=== PATIENT | female | born 2000 | race African-American/Black ===

== ENCOUNTER → 2021-01-09 11:55 | Outpatient (BNVA) | payer BC, SELFPAY | PROVIDERS: PCP Pediatrics; Visit Provider Advanced Practice Midwife ==

== ENCOUNTER → 2021-01-14 13:13 | Outpatient (BNVA) | payer BC, SELFPAY | PROVIDERS: PCP Pediatrics; Visit Provider Advanced Practice Midwife | DX: Z30.011 Encounter for initial prescription of contraceptive pills (principal); Z30.432 Encounter for removal of intrauterine contraceptive device | CPT/HCPCS: 11982 ==

== ENCOUNTER → 2021-04-15 13:25 | Outpatient (BNVA) | payer BC, SELFPAY | PROVIDERS: PCP Pediatrics; Visit Provider Advanced Practice Midwife ==

== ENCOUNTER 2022-10-15 12:52 | Outpatient (REF) | payer BC, SELFPAY | END 2022-10-15 12:53 | disposition home or self-care (01) | LOC: HO.LNP 12:52 | PROVIDERS: PCP Pediatrics; Visit Provider Advanced Practice Midwife | DX: Z01.419 Encounter for gynecological examination (general) (routine) without abnormal findings (principal) | CPT/HCPCS: 88142 ==

== ENCOUNTER 2022-10-15 13:50 | Outpatient (REF) | payer BC, SELFPAY ==
[2022-10-15 15:18] LABS: Syphilis Screen Nonreactive (Nonreactive)
[2022-10-15 17:13] LABS: CT PCR NOT DETECTED (Not Detect.); NG PCR NOT DETECTED (Not Detect.)
[2022-10-17 09:44] LABS: HBc Num1 0.09 S/CO (0.00-0.79); HIV AB/AG Nonreactive (Nonreactive); HIV Num 1 0.06 S/CO (0.00-0.99); Hepatitis B Core Antibody Nonreactive (Nonreactive); ~HepC Num1 0.08 S/CO (0.00-0.79); ~Hepatitis C Antibody Nonreactive (Nonreactive)
== END 2022-10-15 13:51 | disposition home or self-care (01) ==
LOC: HO.LAB 13:50
PROVIDERS: Visit Provider Advanced Practice Midwife
DX: Z11.4 Encounter for screening for human immunodeficiency virus [HIV] (principal); Z11.3 Encounter for screening for infections with a predominantly sexual mode of transmission; Z20.2 Contact with and (suspected) exposure to infections with a predominantly sexual mode of transmission
CPT/HCPCS: 0353U; 86704; 86780; 86803; 87389

== ENCOUNTER 2023-10-22 13:11 | Outpatient (REF) | payer BC, SELFPAY ==
[2023-10-23 03:52] LABS: CT PCR NOT DETECTED (Not Detect.); NG PCR NOT DETECTED (Not Detect.)
[2023-10-23 15:17] LABS: BV Int Neg Control Negative (Negative); BV Int Pos Control Positive (Positive)
== END 2023-10-22 13:12 | disposition home or self-care (01) ==
LOC: HO.LNP 13:11
PROVIDERS: Visit Provider Advanced Practice Midwife
DX: Z00.00 Encounter for general adult medical examination without abnormal findings (principal); Z20.2 Contact with and (suspected) exposure to infections with a predominantly sexual mode of transmission
CPT/HCPCS: 0353U; 87480; 87510; 87660

== ENCOUNTER 2023-10-22 13:11 | Outpatient (AMB) | payer BC, SELFPAY ==
--- NOTE | 2023-10-22 13:13 | MHC.OFFVIS ---
Intake Vital Signs 10/22/23 13:16 Height 5 ft 6 in Weight 194 lb BMI 31.3 BP 110/70 Intake Visit Reasons: Annual Inspector Plug Seam: Inspector Plug Seam Present (Dahlia) Allergies No Known Allergies Allergy (Verified 10/22/23 13:16) Is last menstrual period known: Yes Last menstrual period: 09/24/23 HPI HPI Comments History of Present Illness Details She is a premenopausal woman presenting for annual examination. Doing well with no concerns. She tries to eat healthy and stays active with exercise. Regular monthly menses. Currently is sexually active. She denies vaginal itching and irritation. STI screening offered; she accepts. Denies family history of breast, ovarian or colon cancer. Last pap smear 2022, negative. PFSH Surgical History No pertinent past surgical history Family History Mother No problems noted. 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 Sexual orientation: Straight/Heterosexual Gender identity: Female Female Reproductive History Menstrual Age of Menarche: 13 Date of last menstrual period: 09/24/23 control method: condoms Total pregnancies: 0 Date of last pap smear: 10/15/22 (neg) Review of Systems Const All systems reviewed & are unremarkable except as noted in HPI and below Reports as per HPI Eyes Reports no additional complaints ENT Reports no additional complaints Card Reports no additional complaints Resp Reports no additional complaints GI Reports as per HPI and Reports no additional complaints Reports as per HPI Musc Reports no additional complaints Skin/Breast Reports as per HPI Neuro Reports no additional complaints Psych Reports no additional complaints Endo Reports no additional complaints Esdras/Lymph Reports no additional complaints Aller/Immun Reports no additional complaints Physical Exam Vital Signs: Last Vital Signs BP 110/70 10/22/23 13:16 BMI result Body Mass Index 31.3 Const General: cooperative, healthy appearing, no acute distress, well developed and alert Orientation/consciousness: patient oriented x3 HEENT Other: Excessive facial hair growth Head: Yes normal to inspection Eyes General: appearance normal, both eyes and all related structures Neck Neck: Yes normal visual inspection Thyroid: Thyroid normal Chest Chest palpation & inspection: normal inspection of the chest and other (no puckering, dimpling, peau de orange, retraction, discharge, masses) Breast/axilla inspection: normal inspection of the breasts Breast/axilla palpation: normal palpation of the breasts Resp Effort & Inspection: normal respiratory effort GI Inspection: Yes normal to inspection Palpation (GI): Soft to palpation Rectal Exam - Female: deferred General: Yes bladder normal to palpation External Female Exam: normal external appearance and normal appearance of the urethra Speculum Exam - Vagina: normal appearance of the vagina, normal palpation and normal vaginal discharge Speculum Exam - Cervix: normal appearance of the cervix and normal palpation Bimanual exam- vagina & uterus: normal bimanual exam, normal palpation, uterine size normal, bladder normal to palpation, normal palpation and non-tender Bimanual Exam- Adnexa, other: no masses Skin General skin exam: no rashes or lesions noted Rashes: no rashes Neuro General: patient oriented x3 Cognition (Neuro): normal cognition Extrem General: Yes normal to inspection Psych Attitude: cooperative Thought process: Normal thought process present Assessment & Plan Assessment & Plan (1) Encounter for well woman exam with routine gynecological exam: Code(s): Z01.419 - Encounter for gynecological examination (general) (routine) without abnormal findings Plan Discussed: Current recommendations for pap smears per ASCCP guidelines. Breast awareness and periodic breast exams. Maintain a healthy lifestyle including a well balanced diet and routine exercise. Patient reports familiar history of excessive hair growth for her female relatives, she thought this was normal within her family unit. Occasionally has acne. Use condoms for STI and prevention. All of her questions and concerns were addressed to the best of my ability. RTO in one year for annual berry planter examination. This note is constructed using voice recognition software. While every effort has been made to ensure accuracy, early head start teacher errors may have been included. Orders: Orders Bacterial Vaginosis Panel Today Z00.00 - Encounter for general adult medical examination without abnormal findings Testosterone, Free/Total Today L68.0 - Hirsutism CT NG by PCR Today Z00.00 - Encounter for general adult medical examination without abnormal findings 17 Hydroxyprogesterone Today L68.0 - Hirsutism DHEA Sulfate Today L68.0 - Hirsutism Coding Level of Care Code Est Pt Prev Care 18-39y(77525) Diagnoses Encounter for well woman exam with routine gynecological exam Z01.419
[2023-10-22 13:16] VITALS: BP 110/70; BMI 31.3
== END 2023-10-22 14:31 | disposition home or self-care (01) ==
PROVIDERS: PCP Pediatrics; Visit Provider Advanced Practice Midwife
DX: Z01.419 Encounter for gynecological examination (general) (routine) without abnormal findings (principal)
CPT/HCPCS: 99395

== ENCOUNTER 2023-10-22 13:45 | Outpatient (REF) | payer BC, SELFPAY ==
[2023-10-23 08:30] LABS: DHEA Sulfate 265 mcg/dL (14-349)
[2023-10-26 17:04] LABS: Testosterone, Free 5.5 pg/mL (0.1-6.4); Testosterone, Total 43 ng/dL (2-45)
== END 2023-10-22 13:46 | disposition home or self-care (01) ==
LOC: HO.LAB 13:45
PROVIDERS: Visit Provider Advanced Practice Midwife
DX: L68.0 Hirsutism (principal)
CPT/HCPCS: 36415; 82627; 83498; 84402; 84403

== ENCOUNTER 2023-11-06 13:51 | Outpatient (AMB) | payer BC, SELFPAY ==
--- NOTE | 2023-11-06 13:52 | MHC.OFFVIS ---
Intake Vital Signs 11/06/23 13:55 Height 5 ft 6 in Weight 191 lb 12.835 oz BMI 31.0 BP 122/80 Intake Visit Reasons: Lab work follow up Allergies No Known Allergies Allergy (Verified 10/22/23 13:16) HPI HPI Comments History of Present Illness Details Patient is here today for lab work follow-up to rule out PCOS and had a positive home test. Her labs were normal. She reports being happy about the and accepting though it was unplanned. LMP 09/24/2023 now approximately 6 weeks 1 day . She denies any pelvic pain or bleeding. She reports eating well and hydrating. Admits to using marijuana on occasion. [facility] Surgical History No pertinent past surgical history Family History Mother No problems noted. 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 Start vitamins. Discussed healthy diet, eat small frequent meals, if any concerns or difficulties with nausea or vomiting to call the office for evaluation. Advised not to use any marijuana during her , patient feels that is doable. Follow-up pending ultrasound results. Advised to call if there is any vaginal bleeding or pelvic pain for immediate evaluation. All of her questions and concerns were addressed to the best of my ability and shared decision making. She is agreeable to the plan of care. This note is constructed using voice recognition software. While every effort has been made to ensure accuracy, folding rules printing machine operator errors may have been included. Orders: Orders US OB follow up 11/12/23 N92.6 - Irregular menstruation, unspecified, Z34.90 - Encounter for supervision of normal , unspecified, unspecified trimester Medications: New PNV,calcium [id number] acid 27 mg iron- 1 mg ( Vitamins Plus Low Iron) 1 tab PO DAILY 90 tabs 4RF Coding Level of Care Code Est Pt Level 3 (05732) Diagnoses Encounter to discuss test results Z71.2 Early stage of Z34.90 Missed menses N92.6
[2023-11-06 13:55] VITALS: BP 122/80; BMI 31.0
== END 2023-11-06 14:13 | disposition home or self-care (01) ==
PROVIDERS: PCP Pediatrics; Visit Provider Advanced Practice Midwife
DX: Z71.2 Person consulting for explanation of examination or test findings (principal); Z34.90 Encounter for supervision of normal pregnancy, unspecified, unspecified trimester; N92.6 Irregular menstruation, unspecified
CPT/HCPCS: 99213

== ENCOUNTER → 2023-11-06 13:51 | Outpatient (BNVA) | payer BC, SELFPAY | PROVIDERS: PCP Pediatrics; Visit Provider Advanced Practice Midwife ==

== ENCOUNTER 2023-11-12 15:24 | Outpatient (REF) | payer BC, SELFPAY ==
--- NOTE | ~2023-11-12 | US_ITS ---
EXAMINATION: US OBSTETRICAL ULTRASOUND CLINICAL INFORMATION: Irregular menstruation. COMPARISON: None available. LMP: 09/24/2023. Gestational age by maternal dates is 7 weeks. Estimated date of delivery by maternal dates is 06/30/2024. TECHNIQUE: Ultrasound of the maternal pelvis is performed using transabdominal and transvaginal transducers. Transvaginal imaging is performed due to inadequate visualization transabdominally. M-mode Doppler is also performed. FINDINGS: There is a single intrauterine gestational sac with visible yolk sac, embryo/fetus, and cardiac activity. There is no significant subchorionic hemorrhage or hematoma. HR: 128 beats per minute. CRL (crown rump length): 0.7 cm (6 weeks and 5 days +/- 4 days). CHRIS (estimated date of delivery): 07/02/2024 +/- 4 days. MATERNAL ADNEXA: The right maternal ovary measures 2.8 x 1.7 x 2.3 cm. The left maternal ovary measures 2.5 x 1.8 x 2.3 cm. There is a 1.6 cm corpus luteal cyst in the left ovary. There is no significant maternal adnexal mass. No maternal pelvic ascites. US/US OB pelvic and transvaginal IMPRESSION: 1. Single intrauterine gestation with ultrasound gestational age of 6 weeks and 5 days +/- 4 days. 2. Estimated date of delivery is 07/02/2024 +/- 4 days. 3. No maternal adnexal mass or pelvic ascites.
== END 2023-11-12 15:25 | disposition home or self-care (01) ==
LOC: HO.US 15:24
PROVIDERS: PCP Pediatrics; Visit Provider Advanced Practice Midwife
DX: Z34.91 Encounter for supervision of normal pregnancy, unspecified, first trimester (principal); Z3A.01 Less than 8 weeks gestation of pregnancy
CPT/HCPCS: 76801; 76817

== ENCOUNTER → 2023-11-30 14:20 | Outpatient (BNVA) | payer BC, SELFPAY | PROVIDERS: PCP Pediatrics; Visit Provider Advanced Practice Midwife | DX: R11.10 Vomiting, unspecified (principal) | CPT/HCPCS: 99211 ==

== ENCOUNTER 2023-12-02 13:54 | Outpatient (AMB) | payer BC, SELFPAY ==
[2023-12-02 14:13] VITALS: BMI 31.1
--- NOTE | 2023-12-02 14:13 | A.OFFVISPN_ITS ---
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: No Allergies No Known Allergies Allergy (Verified 10/22/23 13:16) Medication List - Last Reconciled 12/02/23 by Shanti Lucio doxylamine succinate (Unisom (doxylamine)) 25 mg PO BEDTIME 30 days vit,rick [id number]-[id number] 28 mg iron- 1 mg (Trinate) 1 tab PO BEDTIME 90 days pyridoxine (vitamin B6) (Vitamin B-6) 25 mg PO tid PRN 30 days Is last menstrual period known: Yes Last menstrual period: 09/24/23 Post menopausal: No Patient : Yes Do you need a note to return to daycare/school/sports/work: No PFSH Medical History (Updated 12/02/23 @ 15:14 by Shanti Lucio) Supervision of normal first in first trimester Surgical History No pertinent past surgical history Family History (Updated 12/02/23 @ 15:04 by Shanti Lucio) Mother HTN (hypertension) Father HTN (hypertension) Paternal Grandfather HTN (hypertension) Sister Type 1 diabetes mellitus Brother Autism Social History (Updated 12/02/23 @ 14:25 by Shanti Lucio) Household Members: Family Both parents involved: Yes Caregiver staying overnight: No Housing: House Are you a primary career development associate to a significant other at home: No Do you presently have visiting nurse or other home services: No 75 years or older and lives alone: No Alcohol intake: never Patient Tobacco Use Status: Never used Tobacco Substance Use Type: Marijuana Special anson needs: No Agree to transfusion: Yes service: No Current occupational status: employed 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 Current occupational exposures/hazards: No Sexual orientation: Straight/Heterosexual Gender identity: Female Female Reproductive History Menstrual Age of Menarche: 13 Duration of menses: 3-5 days Date of last menstrual period: 09/24/23 control method: none Total pregnancies: 1 Full term: 0 Premature: 0 Number of Living Children: 0 Ab induced: 0 Ab spontaneous: 0 Ectopics: 0 Multiple births: 0 History of abnormal pap smear: No History of STI: No History History 1 Elective abortions 0 Para 0 Spontaneous abortions 0 Hx # Term Pregnancies 0 Ectopic pregnancies 0 Hx # Pregnancies 0 Multiple births 0 Education First Trimester Education Checklist Plans/Education - by Trimester Counseled: Yes HIV and other routine tests: discussed Infectious disease exposure: chicken pox immunity discussed, hepatitis risk discussed and tuberculosis exposure discussed Influenza vaccine: discussed Nutrition and weight gain counseling: special diet: discussed Sexual activity: discussed Exercise: discussed Tobacco use: No Alcohol use: No Substance use: No Environmental/home/work hazards: discussed Domestic violence: discussed Travel: discussed Seatbelt use: discussed Toxoplasmosis precautions (cats/raw meat): discussed Risk factors identified by history: discussed danger signs: No education packet: Child education class information, symptoms, vitamins and iron, diet and weight gain, fish and mercury intake, listeriosis prevention, exercise and activity, sexual activity, x-ray exposure, medication use, toxoplasmosis precautions, sauna/hot tub use and dental care Mental health: discussed Anticipated course of care: discussed Indications for ultrasound: discussed Health center information: personnel described, visit schedule reviewed, coverage 24 hours a day and signs of miscarriage reviewed Questionnaire History History : 1 Visit CHRIS Calculator Estimated Delivery Date Method Current WG Current Estimate 07/02/24 Ultrasound #1 9w 4d Other Estimates 06/30/24 LMP (Uncertain) 9w 6d Expected Delivery Route/Plan Specific Issues/Plans FH Type I Diabetes--added early glucose to labs FH of Autism [place] background OB Visit Log Initial Weight: 193 lb Date -?-?-?-?-?-?-?-?-?-?-?-?- EGA Weight Gest Week Fundal Ht Present FHR move Efface % Edema BP PrePreg We Weight GTT -?-?-?-?-?-?-?-?-?-?-?-?- Glucose LV Protein Blood Type 12/02/23 -?-?-?-?-?-?-?-?-?-?-?-?- 9w 4d 193 lb (+0 oz) 193 lb -?-?-?-?-?-?-?-?-?-?-?-?- Notes Visit Date: 12/02/23 Last Updated by: 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 She is a pleasant 23 yo with LMP 09/24/23 and CHRIS 07/03/24 and GA today 9w5d. US on 11/12/23 at 6w5d with CHRIS 07/02/24 and GA 9w6d. Sil and her fiance, Miguel, are very excited about their first . Sil feels safe in her relationship and supported without any h/o DV. Pt has had difficulty with hyperemesis but feels much better now. She started using [employer] 3 days ago and has not had any nausea/vomiting since. She is eating and drinking anything she wants. Her weight has not decreased and urine dip is negative for ketones. She was given the folder, we discussed danger signs and she is aware of 27/04 MD coverage and was advised how to reach MD after hours, weekends and holidays. Pt has a brother with Autism, a sister with Type 1 DM and [place] background. Early glucose added to labs. First trimester education was reviewed. NT US ordered and will be scheduled. Pt will schedule OB PE and [employer] paperwork will be available for OB PE. Pt verbalizes understanding and agrees with plan. No further questions at this time. Initial Infection History & Risk Profile History of STDs: No HIV risk evaluation: low risk Hepatitis B risk evaluation: low risk Patient or partner has history of Genital Herpes: No Varicella/chicken pox status: unknown Genetic Screening & Dinkey Engine Mechanic Genetic Screening/Teratology Counseling - Includes patient, baby's father, or anyone in either family with: 1. Patient's age 35 years or older as of estimated date of delivery: No 2. Thalassemia (Greenlandic, Turkish, Mediterranean, or Background); MCV less than 80: No 3. Neural Tube Defect (Meningomyelocele, Spina Bifida, or Anencephaly): No 4. Congenital Heart Defect: No 5. Down Syndrome: No 6. Win-Sachs (Ashkenazi Gnosticist, Cajun, [place]): Yes 7. Vimal Disease (Ashkenazi Gnosticist): No 8. Familial Dysautonomia (Ashkenazi Gnosticist): No 9. Sickle Cell Disease or Trait (): No 10. Hemophilia or other blood disorders: No 11. Muscular Dystrophy: No 12. Cystic Fibrosis: No 13. Rosie's Chorea: No 14. Intellectual disability/Autism: Yes 15. Other inherited genetic or chromosomal disorder: No 16. Maternal Metabolic Disorder (EG,TYPE 1 Diabetes, PKU): No 17. Patient or baby's father had a child with defects not listed above: No 18. Recurrent loss or a stillbirth: No 19. Medications (including supplements, vitamins, herbs or otc drugs)/illicit/recreational drugs/alcohol since last menstrual period: No 20. Any other: No Comments/Counseling: Pt has [place] background, Pt's brother has Autism Infection History 1. Live with someone with TB or exposed to TB: No 2. Rash or viral illness since last menstrual period: No 3. Hepatitis B,C: No Other (see comments) Source: [employer] Coding Level of Care Code Established Pt Center Patient Type Established History Problem Focused Medical Decision Making Moderate Complexity Diagnoses Supervision of normal first in first trimester Z34.01 Time Spent (min) 70 Assessment & Plan Assessment & Plan (1) Supervision of normal first in first trimester: Code(s): Z34.01 - Encounter for supervision of normal first , first trimester Category: Medical Orders: Orders Complete Blood Count no Diff Today Z32.01 - Encounter for test, result positive, Z34.01 - Encounter for supervision of normal first , first trimester Hepatitis B Surface Antigen Today Z32.01 - Encounter for test, result positive, Z34.01 - Encounter for supervision of normal first , first trimester Urine Culture Today Z32.01 - Encounter for test, result positive, Z34.01 - Encounter for supervision of normal first , first trimester Screen Today Z32.01 - Encounter for test, result positive, Z34.01 - Encounter for supervision of normal first , first trimester Glucose 1 Hour PP 50gm Dose Today Z32.01 - Encounter for test, result positive, Z34.01 - Encounter for supervision of normal first , first trimester Syphilis Screen Today Z32.01 - Encounter for test, result positive, Z34.01 - Encounter for supervision of normal first , first trimester Varicella IgG Antibody Today Z32.01 - Encounter for test, result positive, Z34.01 - Encounter for supervision of normal first , first trimester Hepatitis C Antibody Today Z32.01 - Encounter for test, result positive, Z34.01 - Encounter for supervision of normal first , first trimester HIV Ab/Ag Today Z32.01 - Encounter for test, result positive, Z34.01 - Encounter for supervision of normal first , first trimester Drug Screen Urine Today Z32.01 - Encounter for test, result positive, Z34.01 - Encounter for supervision of normal first , first trimester Rubella IgG Antibody Today Z32.01 - Encounter for test, result positive, Z34.01 - Encounter for supervision of normal first , first trimester CF Carrier Screen Today Z32.01 - Encounter for test, result positive, Z34.01 - Encounter for supervision of normal first , first trimester US OB 1T nuc measure Today Z32.01 - Encounter for test, result positive, Z34.01 - Encounter for supervision of normal first , first trimester
== END 2023-12-02 15:43 | disposition home or self-care (01) ==
LOC: HO.HWS 13:56
PROVIDERS: PCP Pediatrics; Visit Provider Advanced Practice Midwife
DX: Z34.01 Encounter for supervision of normal first pregnancy, first trimester (principal)
CPT/HCPCS: 25942

== ENCOUNTER → 2023-12-02 13:54 | Outpatient (BNVA) | payer BC, SELFPAY | PROVIDERS: PCP Pediatrics; Visit Provider Advanced Practice Midwife | DX: Z34.01 Encounter for supervision of normal first pregnancy, first trimester (principal) | CPT/HCPCS: 99212 ==

== ENCOUNTER 2023-12-08 13:08 | Outpatient (AMB) | payer BC, SELFPAY ==
--- NOTE | 2023-12-08 13:18 | A.OFFVIS_ITS ---
Intake Intake Visit Reasons: ob/pe Allergies No Known Allergies Allergy (Verified 10/22/23 13:16) [facility] Medical History (Updated 12/02/23 @ 15:14 by Shanti Lucio) Supervision of normal first in first trimester Surgical History No pertinent past surgical history Family History (Updated 12/02/23 @ 15:05 by Shanti Lucio) Mother HTN (hypertension) Father HTN (hypertension) Paternal Grandfather HTN (hypertension) Sister Type 1 diabetes mellitus Brother Autism Social History (Updated 12/02/23 @ 14:25 by Shanti Lucio) Household Members: Family Both parents involved: Yes Caregiver staying overnight: No Housing: House Are you a primary acute care clinical nurse specialist to a significant other at home: No Do you presently have visiting nurse or other home services: No 75 years or older and lives alone: No Alcohol intake: never Patient Tobacco Use Status: Never used Tobacco Substance Use Type: Marijuana Special anson needs: No Agree to transfusion: Yes service: No Current occupational status: employed 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
[2023-12-08 13:30] VITALS: BP 120/60; BMI 30.8
--- NOTE | 2023-12-08 13:31 | A.OFFVISPN_ITS ---
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 Present Allergies No Known Allergies Allergy (Verified 12/08/23 13:34) Patient : Yes PFSH Medical History Supervision of normal first in first trimester Surgical History No pertinent past surgical history Family History Mother HTN (hypertension) Father HTN (hypertension) Paternal Grandfather HTN (hypertension) Sister Type 1 diabetes mellitus Brother Autism Social History Household Members: Family Both parents involved: Yes Caregiver staying overnight: No Housing: House Are you a primary nurse behavioral health care to a significant other at home: No Do you presently have visiting nurse or other home services: No 75 years or older and lives alone: No Alcohol intake: never Patient Tobacco Use Status: Never used Tobacco Substance Use Type: Marijuana Special anson needs: No Agree to transfusion: Yes service: No Current occupational status: employed 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 Current occupational exposures/hazards: No Sexual orientation: Straight/Heterosexual Gender identity: Female Female Reproductive History Menstrual Age of Menarche: 13 Date of last pap smear: 10/15/22 (negative) History of abnormal pap smear: No History History 1 Elective abortions 0 Para 0 Spontaneous abortions 0 Hx # Term Pregnancies 0 Ectopic pregnancies 0 Hx # Pregnancies 0 Multiple births 0 Visit CHRIS Calculator Estimated Delivery Date Method Current WG Current Estimate 07/02/24 Ultrasound #1 10w 3d Other Estimates 06/30/24 LMP (Uncertain) 10w 5d Expected Delivery Route/Plan Specific Issues/Plans FH Type I Diabetes--added early glucose to labs FH of Autism [place] background 12/08/2023 patient is thinking that she is having 2nd thoughts about continuing the [facility] and will let us know if she continues the . OB Visit Log Initial Weight: 193 lb Date -?-?-?-?-?-?-?-?-?-?-?-?- EGA Weight Gest Week Fundal Ht Present FHR move Efface % Edema BP PrePreg We Weight GTT -?-?-?-?-?-?-?-?-?-?-?-?- Glucose LV Protein Blood Type 12/02/23 -?-?-?--?-?-?-?-?-?-?-?-?- 9w 4d 193 lb (+0 oz) 193 lb -?-?-?-?-?-?-?-?-?-?-?-?- 12/08/23 -?-?-?-?-?-?-?-?-?-?-?-?- 10w 3d 191 lb (-2 lb) 10 0 120/60 191 lb -?-?-?-?-?-?-?-?-?-?-?-?- Notes Visit Date: 12/08/23 Last Updated by: Deborah Ashby CNM Patient is scheduled here today 12/08/2023 at 10 weeks and 3 days by ultrasound for her 1st visit. She let me know at the beginning of the visit that she is having 2nd thoughts about continuing the as she has not really sure that she is in the place in her life at this time to take on the role of being a parent. She told her mother and some others about the and everyone else was so excited that she kind of got surrounded by their excitement but was not sure she was feeling it herself. She has been doing some thinking and talking about it and [facility] she does not know exactly when it is. And she does know that time is a factor and she is running out of time at this time and it is probably too late for a medication . Physically she is feeling fatigued but the nausea as there 1 day and not another and she is managing she has not wearing the see bands today. She and her fiance have talked and if she [facility] she would bring him. She just feels like they are too young right now and would not be the best parents they need to be. External physical exam done and reviewed with patient how she is feeling and her decision making. Also reviewed what supports she has. EPDS score was 10 patient was smiling throughout the visit and very clearly expressing her thoughts and feelings. In a well thought out way Plan made to not repeat pelvic exam as it is not necessary anyway as it was done in October with her Pap smear and cultures which were negative. Additionally I asked her if she wanted me to attempt to hear an FHT and she thought about it and decided it was okay to try and she would be paying attention to how she felt if it was audible FHT was not audible. Discussed that if she does continue the the timing of the next tests and ultrasounds is somewhat important and she would need to have a nuchal translucency ultrasound in a couple of weeks and that would need to be scheduled at [facility]. Plan made with patient that since she is telling me she is leaning in that direction that we will call her in 1 week and see if she needs further care with us otherwise she [facility] and make her best decision. I also discussed with her that we do not deliver babies in this practice and that she would be sent on to [facility] to deliver her baby and she said that that was a plan that she was happy with if she continues the . 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 She is a pleasant 23 yo with LMP 09/24/23 and CHRIS 07/03/24 and GA today 9w5d. US on 11/12/23 at 6w5d with CHRIS 07/02/24 and GA 9w6d. Sil and her fiance, Miguel, are very excited about their first . Sil feels safe in her relationship and supported without any h/o DV. Pt has had difficulty with hyperemesis but feels much better now. She started using Seabands 3 days ago and has not had any nausea/vomiting since. She is eating and drinking anything she wants. Her weight has not decreased and urine dip is negative for ketones. She was given the folder, we discussed danger signs and she is aware of 27/04 MD coverage and was advised how to reach MD after hours, weekends and holidays. Pt has a brother with Autism, a sister with Type 1 DM and [place] background. Early glucose added to labs. First trimester education was reviewed. NT US ordered and will be scheduled. Pt will schedule OB PE and [facility] paperwork will be available for OB PE. Pt verbalizes understanding and agrees with plan. No further questions at this time. 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 Pelvic deferred, as just done in October, with Pap and cultures Constitutional General: cooperative, healthy appearing, comfortable, no acute distress and well developed Nutritional Appearance: average body habitus and well nourished Constitutional Limitations: no limitations HENMT Head: normocephalic and other Teeth and gingiva: dentition normal and gingiva normal Neck Thyroid: Thyroid normal Chest Breast/axilla inspection: normal inspection of the breasts and Other (nipples edie well) Breast/axilla palpation: normal palpation of the breasts and normal palpation of the axillae Resp Effort & Inspection: normal respiratory effort Auscultation: clear to auscultation bilaterally Cardio Heart sounds: S1 normal heart sound present and S2 normal heart sound present GI Inspection (GI): normal to inspection General Exam: Yes no CVA tenderness External Female Exam: normal external appearance Results Reviewed Results Reviewed: Name: Sil Munoz Age/Sex: 22/F Attending: Ariana Huang CNM : 2000 Submitted by: Ariana Huang CNM Copies to: Payton Whyte MD MR #: [id number] Status: DEP REF Collected: 10/15/22 Location: .LN Received: 10/15/22 Interpretation Satisfactory for evaluation. Negative for intraepithelial lesion or malignancy. Clinical Information LMP: 09/28/2022 Previous PAP test: None Material Received ThinPrep-Cervical Copies To Payton Whyte MD [address] [place] [address] Dr. [address] [place] [address] Ariana Huang CNM [address] [place] [address] Dr. [address] [place] [address] Electronically Signed By: Nancy Nunez 10/20/22 6125 The Pap Test is a screening procedure with the inherent possibility of both false negative and false positive results. Results should be interpreted in the context of historic and current clinical findings. Reliability of the Pap Test is enhanced by performing the test on a regular repetitive basis. Patient: Sil Munoz Age/Sex: 22/F MR#: [id number] Page [address] [address] Ultrasound Report Signed Patient: Sil Munoz MR#: [id number] : 2000 Acct:[id number] Age/Sex: 23 / F ADM Date: 11/12/23 Loc: HO.US Attending Dr: Ariana Huang CNM Ordering Physician: Ariana Huang CNM Date of Service: 11/12/23 Procedure(s): US OB pelvic and transvaginal Accession Number(s): [id number] cc: Payton Whyte MD; Ariana Huang CNM~ EXAMINATION: US OBSTETRICAL ULTRASOUND CLINICAL INFORMATION: Irregular menstruation. COMPARISON: None available. LMP: 09/24/2023. Gestational age by maternal dates is 7 weeks. Estimated date of delivery by maternal dates is 06/30/2024. TECHNIQUE: Ultrasound of the maternal pelvis is performed using transabdominal and transvaginal transducers. Transvaginal imaging is performed due to inadequate visualization transabdominally. M-mode Doppler is also performed. FINDINGS: There is a single intrauterine gestational sac with visible yolk sac, embryo/fetus, and cardiac activity. There is no significant subchorionic hemorrhage or hematoma. HR: 128 beats per minute. CRL (crown rump length): 0.7 cm (6 weeks and 5 days +/- 4 days). CHRIS (estimated date of delivery): 07/02/2024 +/- 4 days. MATERNAL ADNEXA: The right maternal ovary measures 2.8 x 1.7 x 2.3 cm. The left maternal ovary measures 2.5 x 1.8 x 2.3 cm. There is a 1.6 cm corpus luteal cyst in the left ovary. There is no significant maternal adnexal mass. No maternal pelvic ascites. US/US OB pelvic and transvaginal IMPRESSION: 1. Single intrauterine gestation with ultrasound gestational age of 6 weeks and 5 days +/- 4 days. 2. Estimated date of delivery is 07/02/2024 +/- 4 days. 3. No maternal adnexal mass or pelvic ascites. Dictated By: Radha Mcintyre Signed By: <Electronically signed by Radha Mcintyre in OV> 11/16/23 1831 DD/ 1475 TD/TT: [employer] Supervisor: Coding Level of Care Code [place] Diagnoses Supervision of normal first in first trimester Z34.01 Assessment & Plan Assessment & Plan (1) Supervision of normal first in first trimester: Code(s): Z34.01 - Encounter for supervision of normal first , first trimester Category: Medical
== END 2023-12-08 14:25 | disposition home or self-care (01) ==
LOC: HO.HWSM 13:08
PROVIDERS: PCP Pediatrics; Visit Provider Advanced Practice Midwife
DX: Z34.01 Encounter for supervision of normal first pregnancy, first trimester (principal)
CPT/HCPCS: 25942; 99213; S3005

== ENCOUNTER → 2023-12-08 13:08 | Outpatient (BNVA) | payer BC, SELFPAY | PROVIDERS: PCP Pediatrics; Visit Provider Advanced Practice Midwife | DX: Z34.01 Encounter for supervision of normal first pregnancy, first trimester (principal) | CPT/HCPCS: 99212 ==